=== PATIENT | female | born 1990 | race African-American/Black ===

== ENCOUNTER 2018-07-07 11:43 | Emergency (ER) | payer SELFPAY ==
[~2018-07-07] VITALS: Ht 160 cm; Wt 82.0 kg
[2018-07-07] MEDS ORDERED: IBUPROFEN 800MG TABLET PO ONE (14:15)
[2018-07-07 15:59] VITALS: BP 126/77
== END 2018-07-07 16:03 | disposition home or self-care (01) ==
LOC: ER 11:43
DX: M25.512 Pain in left shoulder (principal); R51 Headache; V49.9XXA Car occupant (driver) (passenger) injured in unspecified traffic accident, initial encounter; Y93.89 Activity, other specified; Y92.89 Other specified places as the place of occurrence of the external cause; Y99.8 Other external cause status
CPT/HCPCS: 73030; 81025; 99283